=== PATIENT | female | born 1995 | race African-American/Black ===

== ENCOUNTER 2016-03-24 01:18 | Emergency (ER) | payer SELFPAY ==
[2016-03-24 02:32] LABS: ABSOLUTE EOSINOPHILS # (AUTO) 0.3 10^3/uL (0.0-0.6); ABSOLUTE LYMPHOCYTES (AUTO) 2.6 10^3/uL (0.5-4.7); ABSOLUTE MONOCYTES (AUTO) 0.8 10^3/uL (0.1-1.4); ABSOLUTE NEUT (AUTO) 4.3 10^3/uL (1.7-8.2); BASOPHILS % (AUTO) 0.3 % (0-2); BILIRUBIN,URINE NEGATIVE (NEGATIVE); EOSINOPHILS % (AUTO) 3.5 % (0-6); GLUCOSE, URINE NEGATIVE (NEGATIVE); HEMATOCRIT 35.9 % (36.0-47.0); HEMOGLOBIN 12.1 g/dL (12.0-15.5); HGB HCT DIFFERENCE 0.4; KETONES,URINE NEGATIVE (NEGATIVE); LEUKOCYTE ESTERASE,URINE LARGE (NEGATIVE); LYMPHOCYTES % (AUTO) 32.7 % (13-45); MEAN CORPUSCULAR HEMOGLOBIN 30.3 pg (27.0-33.4); MEAN CORPUSCULAR HGB CONC 33.7 g/dL (32.0-36.0); MEAN CORPUSCULAR VOLUME 90 fl (80-97); MONOCYTES % (AUTO) 9.4 % (3-13); NITRITE,URINE NEGATIVE (NEGATIVE); PROTEIN,URINE NEGATIVE (NEGATIVE); RED CELL DISTRIBUTION WIDTH 14.2 % (11.5-14.0); SEGMENTED NEUTROPHILS % (AUTO) 54.1 % (42-78)
[2016-03-24 02:39] LABS: APPEARANCE,URINE CLEAR
[2016-03-24 02:40] LABS: URINE SPECIFIC GRAVITY 1.013
[2016-03-24 02:45] LABS: ALANINE AMINOTRANSFERASE 21 U/L (9-52); ALKALINE PHOSPHATASE 57 U/L (38-126); ANION GAP 10 (5-19); ASPARTATE AMINO TRANSFERASE 18 U/L (14-36); BILIRUBIN,TOTAL 0.9 mg/dL (0.2-1.3); BLOOD UREA NITROGEN 12 mg/dL (7-20); CALCIUM 9.4 mg/dL (8.4-10.2); CARBON DIOXIDE 25 mmol/L (22-30); CHLORIDE 104 mmol/L (98-107); CREATININE RESULT 0.64 mg/dL (0.52-1.25); GLUCOSE 89 mg/dL (75-110); LIPASE 273.9 U/L (23-300); POTASSIUM 4.1 mmol/L (3.6-5.0); TOTAL PROTEIN 7.2 g/dL (6.3-8.2)
[2016-03-24] MEDS ORDERED: ONDANSETRON 4 MG TAB.RAPDIS PO ONE (04:47)
--- NOTE | 2016-03-24 04:53 | ER Document Report ---
ED GI/ - General Mode of Arrival: Ambulatory TRAVEL OUTSIDE OF THE [place] IN LAST 30 DAYS: No - HPI Patient complains to provider of: Abdominal pain Associated symptoms: Other - See above <PK MICHAEL - Last Filed: 03/24/16 05:08> <CHARLOTTE FERRERA - Last Filed: 03/24/16 05:37> - General Chief Complaint: Lower Abdominal Pain Stated Complaint: PELVIC PAIN/URINARY ISSUE Notes: Patient is a 21 year old female, with a past medical history including asthma, who presents to the emergency department complaining of abdominal pain onset 1 week ago. Patient reports that the pain is located in her pelvic area. Patient also complains of back pain, dysuria, and vomiting. Patient denies increased urination. Patient states that she has had UTIs in the past. (PK MICHAEL) - Related Data Allergies/Adverse Reactions: Sulfa (Sulfonamide Antibiotics) Allergy (Verified 12/13/15 09:25) Past Medical History - General Information source: Patient - Social History Smoking Status: Unknown if Ever Smoked Family History: Reviewed & Not Pertinent Patient has suicidal ideation: No Patient has homicidal ideation: No Pulmonary Medical History: Reports: Hx Asthma <PK MICHAEL - Last Filed: 03/24/16 05:08> Review of Systems - Review of Systems Constitutional: No symptoms reported EENT: No symptoms reported Cardiovascular: No symptoms reported Respiratory: No symptoms reported Gastrointestinal: See HPI, Abdominal pain, Vomiting Genitourinary: See HPI, Dysuria. denies: Frequency Female Genitourinary: No symptoms reported Musculoskeletal: See HPI, Back pain Skin: No symptoms reported Hematologic/Lymphatic: No symptoms reported Neurological/Psychological: No symptoms reported -: Yes All other systems reviewed and negative <PK MICHAEL - Last Filed: 03/24/16 05:08> Physical Exam - Vital signs Interpretation: Normal - General General appearance: Appears well, Alert - HEENT Head: Normocephalic, Atraumatic - Respiratory Respiratory status: No respiratory distress Chest status: Nontender Breath sounds: Normal Chest palpation: Normal - Cardiovascular Rhythm: Regular Heart sounds: Normal auscultation Murmur: No - Abdominal Inspection: Normal Distension: No distension Bowel sounds: Normal Tenderness: Tender - Suprapubic tenderness to palpation Organomegaly: No organomegaly - Back Back: Normal, Nontender - Extremities General upper extremity: Normal inspection General lower extremity: Normal inspection - Neurological Neuro grossly intact: Yes Cognition: Normal Orientation: AAOx4 Karen Coma Scale Eye Opening: Spontaneous Karen Coma Scale Verbal: Oriented Karen Coma Scale Motor: Obeys Commands Karen Coma Scale Total: 15 Speech: Normal - Psychological Associated symptoms: Normal affect, Normal mood - Skin Skin Temperature: Warm Skin Moisture: Dry Skin Color: Normal <PK MICHAEL - Last Filed: 03/24/16 05:08> - Genitourinary External exam: Normal Speculum exam: Vaginal discharge Vaginal bleeding: None Bimanuel exam: Normal <CHARLOTTE FERRERA - Last Filed: 03/24/16 05:37> - Vital signs Vitals: Temp Pulse Resp BP Pulse Ox 98.6 F 71 16 113/76 99 03/24/16 01:33 03/24/16 01:33 03/24/16 01:33 03/24/16 01:33 03/24/16 01:33 (PK MICHAEL) (CHARLOTTE FERRERA) Course - Laboratory Result Diagrams: 03/24/16 02:05 03/24/16 02:05 <PK MICHAEL - Last Filed: 03/24/16 05:08> - Laboratory Result Diagrams: 03/24/16 02:05 03/24/16 02:05 <CHARLOTTE FERRERA - Last Filed: 03/24/16 05:37> - Re-evaluation Re-evalutation: 03/24/16 05:37 Patient with some vaginal discharge. Patient will be treated for urinary tract infection as her symptoms are more consistent with that. Gonorrhea and chlamydia will be sent. Patient is to call for test results. Urine culture sent. Patient will be given a dose of Rocephin in the emergency department. Return if worsening or concerning symptoms. Able to take by mouth. Stable for discharge. (CHARLOTTE FERRERA) - Vital Signs Vital signs: Temp Pulse Resp BP Pulse Ox 98.6 F 71 16 113/76 99 03/24/16 01:33 03/24/16 01:33 03/24/16 01:33 03/24/16 01:33 03/24/16 01:33 (PK MICHAEL) (CHARLOTTE FERRERA) - Laboratory Laboratory results interpreted by me: 03/24/16 03/24/16 02:05 02:05 Hct 35.9 L RDW 14.2 H Urine Urobilinogen 2.0 H Ur Leukocyte Esterase LARGE H (PK MICHAEL) (CHARLOTTE FERRERA) Discharge <PK MICHAEL - Last Filed: 03/24/16 05:08> <CHARLOTTE FERRERA - Last Filed: 03/24/16 05:37> - Discharge Clinical Impression: UTI (urinary tract infection) Qualifiers: Urinary tract infection type: site unspecified Hematuria presence: without hematuria Qualified Code(s): N39.0 - Urinary tract infection, site not specified Nausea & vomiting Qualifiers: Vomiting type: unspecified Vomiting Intractability: unspecified Qualified Code( s): R11.2 - Nausea with vomiting, unspecified Condition: Stable Disposition: HOME, SELF-CARE Instructions: Vomiting ([facility]), Urinary Tract Infection ([facility]) Additional Instructions: Please call for test results. Please take antibiotics as prescribed. Prescriptions: Cefdinir [Omnicef 300 mg Capsule] 1 cap PO BID #14 capsule Forms: Return to Work Scribe Attestation: 03/24/16 05:37 I personally performed the services described in the documentation, reviewed and edited the documentation which was dictated to the scribe in my presence, and it accurately records my words and actions. (CHARLOTTE FERRERA) Scribe Documentation - Scribe Written by Scribe:: josias Sanders, 03/24/16, 0508 acting as scribe for :: Juan R <PK MICHAEL - Last Filed: 03/24/16 05:08>
[2016-03-24] MEDS ORDERED: LIDOCAINE 1% INJ-PF (10 MG/ML) 30 ML SDV INFIL ONE (05:33)
[2016-03-24] MEDS ORDERED: CEFTRIAXONE INJ 1000 MG VIAL IM ONE (05:33)
[2016-03-24] MEDS ORDERED: ONDANSETRON ODT 4 MG TAB (6 TAB/DSPK) PO PRN (05:34)
[2016-03-24 06:14] VITALS: BP 108/68
[2016-03-24 07:48] LABS: CHLAM PCR NOT DETECTED (NOT DETECT)
== END 2016-03-24 06:23 | disposition home or self-care (01) ==
LOC: ER 01:18
DX: N39.0 Urinary tract infection, site not specified (principal); R11.2 Nausea with vomiting, unspecified; J45.909 Unspecified asthma, uncomplicated; R10.2 Pelvic and perineal pain; M54.9 Dorsalgia, unspecified; R35.0 Frequency of micturition; N89.8 Other specified noninflammatory disorders of vagina; Z88.2 Allergy status to sulfonamides
CPT/HCPCS: 99283; 96372; 36415; 87086; 87210; 83690; 85025; 81025; 80053; 81001; 87491; 87591; S0119; J0696

== ENCOUNTER 2016-06-16 22:29 | Emergency (ER) | payer SELFPAY ==
[2016-06-16 22:41] VITALS: BP 120/90
--- NOTE | 2016-06-16 23:15 | ER Document Report ---
ED General - General Chief Complaint: Skin Problem Stated Complaint: LEFT LEG PAIN Time Seen by Provider: 06/16/16 22:58 Notes: Patient is a 21-year-old female presents for complaint of a rash. Patient says she all gets an area of redness with small vesicles that appear on her legs. She said these appear only after shaving. Her boyfriend is in the room and he says he is wanting help shave's her. He says he does use the same shaving cream every time. She says the area so is painful. She says usually last a week and then goes away. No fevers. No associated infections. She said she's had them on both legs. This time she has one on the posterior aspect of her left thigh. She is does not have any history of genital herpes. She has no chronic medical problems. She takes no medications and is otherwise healthy. TRAVEL OUTSIDE OF THE [place] IN LAST 30 DAYS: No - Related Data Allergies/Adverse Reactions: Sulfa (Sulfonamide Antibiotics) Allergy (Verified 12/13/15 09:25) Past Medical History - Social History Smoking Status: Never Smoker Frequency of alcohol use: None Drug Abuse: None Family History: Reviewed & Not Pertinent Patient has suicidal ideation: No Patient has homicidal ideation: No Pulmonary Medical History: Reports: Hx Asthma Renal/ Medical History: Denies: Hx Peritoneal Dialysis Review of Systems - Review of Systems Notes: My Normal Review Basic REVIEW OF SYSTEMS: CONSTITUTIONAL : Denies fever, chills, or sweats. Denies recent illness. GENITOURINARY: Denies difficulty urinating, painful urination, burning, frequency, or blood in urine. FEMALE GENITOURINARY: Denies vaginal bleeding, abnormal or irregular periods. LMP: MUSCULOSKELETAL: Denies neck or back pain or joint pain or swelling. SKIN: Rash on posterior left thigh. NEUROLOGICAL: Denies altered mental status or loss of consciousness. Denies headache. Denies weakness or paralysis or loss of use of either side. Denies problems with gait or speech. Denies sensory or motor loss. ALL OTHER SYSTEMS REVIEWED AND NEGATIVE. Physical Exam - Vital signs Vitals: Temp Pulse Resp BP Pulse Ox 98.6 F 76 16 120/90 H 100 06/16/16 22:38 06/16/16 22:38 06/16/16 22:38 06/16/16 22:38 06/16/16 22:38 - Notes Notes: General Appearance: Well nourished, alert, cooperative, no acute distress, no obvious discomfort. Well-appearing. Vitals: reviewed, See vital signs table. Head: no swelling or tenderness to the head Eyes: PERRL, EOMI, Conjuctiva clear Mouth: No decreasd moisture Extremities: strength 5/5 in all extremities, good pulses in all extremities, no swelling or tenderness in the extremities, no edema. Skin: Patient has a raised erythematous area with clear vesicles on top of it. This area is approximately 3 cm in diameter. Appearance is very consistent with that of a herpetic type viral reaction. Neuro: speech clear, oriented x 3, normal affect, responds appropriately to questions. Course - Vital Signs Vital signs: Temp Pulse Resp BP Pulse Ox 98.6 F 76 18 120/90 H 100 06/16/16 23:27 06/16/16 23:27 06/16/16 23:27 06/16/16 23:27 06/16/16 23:27 - Transfer of Care Notes: 06/17/16 05:34 The patient's thigh looks more consistent with a viral type reaction. The only peers whenever she has irritation of her skin such as shaving. I think bacterial infection is less likely; however, I told her I would prescribe an antibiotic. I informed her to only fill the antibiotic start taking it if she does not start having improvement at least 24 hours or if she feels that the area is getting bigger or larger. I encourage her to start trying a different, shaving cream whenever she shaves her legs. Hopefully this will cause less irritation. I encourage her to return to ER if she has spreading of the rash, fevers, or feels unwell. Patient agrees with plan and will be discharged home. Dictation of this chart was performed using voice recognition software; therefore, there may be some unintended grammatical errors. Discharge - Discharge Clinical Impression: Rash Condition: Good Disposition: HOME, SELF-CARE Additional Instructions: Please return to the ER immediately if you have fevers, worsening of the rash, or feel unwell. Please start the antibiotic if the rash is increasing in size or not improving in 24 hours. Please use a new shaving cream next time you shave. I have written a work note so you can wear shorts at work, but you must still keep the area covered with a a bandage or gauze. Prescriptions: Cephalexin Monohydrate [Keflex 500 mg Capsule] 500 mg PO QID #28 capsule Forms: Special Work Note
== END 2016-06-16 23:37 | disposition home or self-care (01) ==
LOC: ER 22:29
DX: R21 Rash and other nonspecific skin eruption (principal); J45.909 Unspecified asthma, uncomplicated; Z88.2 Allergy status to sulfonamides
CPT/HCPCS: 99283